=== PATIENT | female | born 1970 | race American Indian/Alaskan Native ===

== ENCOUNTER 2018-04-11 12:12 | Outpatient (CLI) | payer OTHER ==
--- NOTE | 2018-04-11 16:05 | Mammography Report ---
BILATERAL DIGITAL DIAGNOSTIC MAMMOGRAM with CAD and BILATERAL BREAST ULTRASOUND: 04/11/18 CLINICAL: Bilateral breast pain and lumps. COMPARISON:03/06/12 FINDINGS: The breasts are heterogeneously dense, which may obscure small masses.No mass, architectural distortion or suspicious calcifications. Ultrasound of the right breast (including all four quadrants and the retroareolar area) demonstrated too numerous to count benign cysts. Cyst at 9 o'clock 6 cm from the nipple measures 10 x 4 x 8 mm. A septated cyst at 11 o'clock 4 cm from the nipple measures 8 x 7 x 10 mm. No solid mass or shadowing. Ultrasound of the left breast (including all four quadrants and the retroareolar area) demonstrated too numerous to count benign cysts area cyst at 3 o'clock 5 cm from the nipple measures 1.3 cm. A cyst at 1 o'clock near the nipple measures 1.5 x 0.5 x 1.1 cm. No solid mass or shadowing. IMPRESSION: Bilateral benign cysts. BI-RADS CATEGORY: 2 -- Benign RECOMMENDATION: Routine mammographic screening in one year. COMMENT: Patient follow-up letters are generated by our [employer] application.
== END 2018-04-11 12:13 | disposition home or self-care (01) ==
LOC: MAMMO 12:12
PROVIDERS: ATTEND Advanced Practice Midwife
DX: N60.02 Solitary cyst of left breast (principal); Z88.0 Allergy status to penicillin; Z91.040 Latex allergy status; Z88.6 Allergy status to analgesic agent; Z88.5 Allergy status to narcotic agent; Z88.1 Allergy status to other antibiotic agents
CPT/HCPCS: 77066